=== PATIENT | male | born 1980 | race Caucasian/White ===

== ENCOUNTER 2018-07-21 23:06 | Emergency (ER) | payer SELFPAY ==
[~2018-07-21] VITALS: Ht 177.8 cm; Wt 79.4 kg
[2018-07-21] MEDS ORDERED: ASPIRIN 81 MG TAB.CHEW PO ONE (23:15)
[2018-07-21] MEDS ORDERED: NITROGLYCERIN OINT 1 GM PACKET TP ONE ×2 (23:15→23:21)
[2018-07-21] MEDS ORDERED: OXYCODONE/APAP 5-325 MG TABLET PO ONE (23:15)
[2018-07-21] MEDS ORDERED: OXYCODONE/APAP 5-325 MG TABLET ONE (23:21)
--- NOTE | 2018-07-21 23:22 | NUR ---
Patient ambulated with stable gait. AAxO x4. Speech clear. Able to speak in complete sentences. No neuro deficits noted. Patient came with c/o aching, non-radiating chest pain x 2 days with occasional numbness and tingling in L hand digit 3. 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 Chest pain 2/10. Respirations even and unlabored. No cough or SOB. No GI/ distress. Patient on monitor. Patient in bed at lowest setting. Side rails up x2. Call light within reach. Fall precautions implemented per protocol.
[2018-07-21 23:48] LABS: BASOPHILS # (AUTO) 0.1 K/uL (0.0-8.0); BASOPHILS % (AUTO) 1.1 % (0.0-2.0); EOSINOPHILS # (AUTO) 0.2 K/uL (0.0-0.7); EOSINOPHILS % (AUTO) 2.7 % (0.0-7.0); HEMATOCRIT 46.5 % (36.7-47.1); HEMOGLOBIN 15.8 g/dL (12.5-16.3); LYMPHOCYTES # (AUTO) 2.5 K/uL (20.0-40.0); LYMPHOCYTES % (AUTO) 32.6 % (20.5-51.5); MEAN CORPUSCULAR HEMOGLOBIN 29.5 uug (23.8-33.4); MEAN CORPUSCULAR HGB CONC 34 g/dL (32.5-36.3); MONOCYTES # (AUTO) 0.6 K/uL (2.0-10.0); MONOCYTES % (AUTO) 7.8 % (0.0-11.0); NEUTROPHILS # (AUTO) 4.3 K/uL (1.8-8.9); NEUTROPHILS % (AUTO) 55.8 % (38.5-71.5); PLATELET COUNT (AUTO) 363 K/uL (152-348); RED BLOOD CELL COUNT(AUTO) 5.35 MIL/uL (4.06-5.63); WHITE BLOOD COUNT (AUTO) 7.7 K/uL (3.6-10.2)
[2018-07-22] LABS: BILIRUBIN,DIRECT 0.1 mg/dL (0.0-0.2); BILIRUBIN,TOTAL 0.2 mg/dL (0.2-1.0); TOTAL PROTEIN, SERUM 7.7 g/dL (6.4-8.2)
--- NOTE | 2018-07-22 00:01 | NUR ---
Patient in bed. VSS NAD noted
[2018-07-22] MEDS ORDERED: LABETALOL HCL 100 MG/20 ML VIAL IV ONE (00:30)
[2018-07-22] MEDS ORDERED: LABETALOL HCL 100 MG/20 ML VIAL ONE (00:31)
--- NOTE | 2018-07-22 00:42 | NUR ---
Labetalol vial pulled from floor stock by Client Relations Specialist. Per ER , 2nd TROP pending to be drawn at 0225. Patient aware of plan of care.
--- NOTE | 2018-07-22 01:05 | NUR ---
Patient in bed sleeping. VSS, NAD.
--- NOTE | 2018-07-22 02:07 | NUR ---
Patient sleeping in bed. VSS, MED.
--- NOTE | 2018-07-22 02:55 | NUR ---
Patient discharged to home in stable conditon. Written and verbal after care instructions given. Patient verbalizes understanding of instructions. Ambulated from ER with stable gait. All belongings with patient. peripheral IV removed prior to d/c. Patient to be driven home in private vehicle by his friend.
[2018-07-22 02:56] VITALS: BP 138/71
== END 2018-07-22 02:56 | disposition home or self-care (01) ==
LOC: ER 23:08
DX: R07.9 Chest pain, unspecified (principal); R20.2 Paresthesia of skin; I10 Essential (primary) hypertension; F11.10 Opioid abuse, uncomplicated; F15.10 Other stimulant abuse, uncomplicated; Z71.6 Tobacco abuse counseling; F17.290 Nicotine dependence, other tobacco product, uncomplicated
CPT/HCPCS: 36415 ×2; 71045; 80048; 80076; 83880; 84484 ×2; 85025; 93005; 96374; 99284; 99406; J3490; 70030-TC; A4663